=== PATIENT | female | born 2000 | race Hispanic/Latino ===

== ENCOUNTER → 2020-06-15 | Outpatient (CLI) | payer OTHER, SELFPAY ==
[~2020-06-15] MED LIST: ACETAMINOPHEN 325 MG TAB ONE; FERR325T81 PO; FLUCONAZOLE 50MG TABLET ONE; LIDOCAINE 1% MDV 20ML VIAL ONE; MAPA500T2 PO; MULTTAB20 PO; NITR100C2 PO; cefTRIAXone SOD 1GM VIAL (J0696 PER 250MG) ONE
[2020-07-19 21:36] LABS: APPEARANCE, URINE CLOUDY (CLEAR); BACTERIA, URINE AUTO 2+ (NEGATIVE); BILIRUBIN, URINE AUTO NEGATIVE (NEGATIVE); BLOOD, URINE BLOOD NEGATIVE (NEGATIVE); COLOR, URINE YELLOW (YELLOW); GLUCOSE, URINE (UA) AUTO NEGATIVE (NEGATIVE); KETONE, URINE AUTO TRACE mg/dL (NEGATIVE); LEUKOCYTE ESTERASE, URINE AUTO 3+ (NEGATIVE); MUCUS, URINE SMALL (NEGATIVE); NITRITE, URINE AUTO POSITIVE (NEGATIVE); PROTEIN, URINE AUTO NEGATIVE (NEGATIVE); RBC, URINE AUTO 8 /HPF (0-3); SPECIFIC GRAVITY URINE AUTO 1.006 (1.002-1.035); SQUAMOUS EPITHELIAL CELL UR AU 0 /HPF (0-6); WBC, URINE AUTO TNTC /HPF (0-3)
[2020-07-29 12:28] LABS: CHLAMYDIA DNA AMPLIFICATION NEGATIVE (NEGATIVE); GC DNA AMPLIFICATION NEGATIVE (NEGATIVE)
== END ==
LOC: M LDO 19:51
PROVIDERS: ATTEND Obstetrics & Gynecology
DX: O23.42 Unspecified infection of urinary tract in pregnancy, second trimester (principal); B37.3 Candidiasis of vulva and vagina; Z3A.26 26 weeks gestation of pregnancy
CPT/HCPCS: 76811; 76817; 76820; 81001; 87186; 87210; 87491; 87591; 96372; G0378; G0463; J0696

== ENCOUNTER 2020-06-29 15:33 | Emergency (ER) | payer OTHER, SELFPAY ==
--- NOTE | 2020-08-19 10:31 | HPE ---
DATE OF ADMISSION: 06/29/2020 A 20-year-old 2, para 1, estimated date of confinement (EDC) 09/21/2020 by an ultrasound done in [place]. Last period 12/14/2019, giving her an EDC of 09/07/2020, but the EDC by ultrasound is more accurate, 09/21/2020. Patient is 28 weeks today. On 06/16/2020, patient was in the emergency. Had a urinary tract infection (UTI). Was given Bactrim. Did not take more than two pills, because she got nauseated and vomited and continued to have nausea and vomiting for the last 4 days with some back pain. PAST HISTORY: In 2017, male, premature rupture of membranes (PPROM) at 35 weeks, 1800 grams. Spent 10 days in the intensive care unit (NICU). RISK FACTORS: She has had no care. She is COVID negative. Isolated 14 days. She had a delivery at 35 weeks. She has significant anemia and urinary tract infection untreated. LABORATORY DATA: Per [place], her EDC is 09/21/2020 and her Pap smear is normal. On examination, no distress. Very pale and anemic. Category 1 strip. No contractions. No discharge. No decelerations. Moderate variability. Blood pressure is 105/59, respirations are 18, pulse 83, temperature is 98.4. Hemoglobin is 9.9, hemoglobin 29.2, and platelets are 164. Urine is cloudy, 1010, pH of 7, plus leukocyte esterase, plus protein, plus blood, plus nitrates. WBC too numerous to count, and bacteria plus. Plan of management is to do Unasyn 3 grams IV push, rehydrate the patient. I gave her a phone number of appointment for [facility] for initial evaluation at 29 weeks. I gave her discharge instructions and was discharged undelivered. In summary, we have a 28-week patient who has had no care, recently moved from [place]. Is quarantined for the last 14 days. Patient expressed understanding through her conference interpreter. She is Persian speaking only. MEDISYS HEALTH NETWORKSharlene
== END 2020-06-29 16:33 | disposition admitted as inpatient to this hospital (09) ==
LOC: M ED 15:33
DX: O21.9 Vomiting of pregnancy, unspecified (principal); Z3A.28 28 weeks gestation of pregnancy; Z53.21 Procedure and treatment not carried out due to patient leaving prior to being seen by health care provider

== ENCOUNTER → 2020-06-29 | Outpatient (CLI) | payer OTHER, SELFPAY ==
[~2020-06-29] MED LIST changes: -ACETAMINOPHEN 325 MG TAB ONE; -FLUCONAZOLE 50MG TABLET ONE; -LIDOCAINE 1% MDV 20ML VIAL ONE; -cefTRIAXone SOD 1GM VIAL (J0696 PER 250MG) ONE
[2020-09-07 13:20] LABS: HEMATOCRIT 29.2 % (36.0-47.0); HEMOGLOBIN 9.9 g/dl (12.0-15.5); MEAN CORPUSCULAR HEMOGLOBIN 30.1 pg (27.0-33.0); MEAN CORPUSCULAR HGB CONC 33.9 g/dl (32.0-36.5); MEAN CORPUSCULAR VOLUME 88.8 fl (80.0-96.0); PLATELET COUNT, AUTOMATED 164 10^3/uL (150-450); RED BLOOD COUNT 3.29 10^6/uL (4.00-5.40); WHITE BLOOD COUNT 10.9 10^3/uL (4.0-10.0)
[2020-09-08 15:26] LABS: APPEARANCE, URINE MANUAL CLOUDY (CLEAR)
[2020-09-08 15:27] LABS: BILIRUBIN, URINE MANUAL NEGATIVE (NEGATIVE); COLOR, URINE MANUAL YELLOW (YELLOW); GLUCOSE, URINE (UA) MANUAL NEGATIVE (NEGATIVE); KETONE, URINE MANUAL NEGATIVE (NEGATIVE); LEUKOCYTE ESTERASE, URINE MAN POSITIVE (NEGATIVE); NITRITE, URINE MANUAL POSITIVE (NEGATIVE); PROTEIN, URINE MANUAL POSITIVE (NEGATIVE); UROBILINOGEN, URINE MANUAL NORMAL (NORMAL)
[2020-09-08 15:28] LABS: BLOOD URINE MANUAL POSITIVE (NEGATIVE); RENAL EPITHELIAL CELLS, URINE SMALL AMOUNT /hpf; SQUAMOUS EPITHELIAL CELL URINE SMALL AMOUNT /hpf (SMALL AMT); WBC, URINE TNTC /hpf (0-3)
[2020-09-08 15:29] LABS: BACTERIA, URINE LARGE AMOUNT; MUCUS, URINE SMALL AMOUNT (NEGATIVE)
== END ==
LOC: M LDO 17:00
PROVIDERS: ATTEND Obstetrics & Gynecology
DX: O23.43 Unspecified infection of urinary tract in pregnancy, third trimester (principal); Z3A.28 28 weeks gestation of pregnancy

== ENCOUNTER 2020-08-05 14:45 | Outpatient (CLI) | payer OTHER ==
[~2020-08-05] VITALS: Ht 167.6 cm; Wt 65.5 kg
[2020-08-05 15:08] VITALS: BP 108/60
--- NOTE | 2020-08-05 16:21 | IPNPDOC ---
Text Note Date of Service The patient was seen on 08/05/20. NOTE [facility] LND Triage S: Elvira is a 20yo at 33+2wks, EDC [id number], who presents to LND triage with c/o PROM x2 days. Pt reports that she has been leaking clear fluid x2 days and is now soaking through her underwear. She reports +FM and BH CTX when fetus is moving, denies LOF/VB. She reports intercourse this AM. Pt has history of PPROM with first delivery at 35 weeks and is concerned that this is the same feeling she had then. otherwise uncomplicated. O: VSS, afebrile, normotensive FHR 140s, moderate variability, + accels, no decels CTX by TOCO: few present and 10 minutes apart (or greater), soft abdomen; pt denies feeling these SSE: copius watery discharge present, sample obtained for WP/TAY and fern screen Fern negative TAY/WP pending TAUS: VTX, MONI WNL - SDP 4.43cm A: 20yo at 33+2wks, intact membranes; Reactive NST. WP/TAY pending. P: Pt discharged home with strict PTL precautions If WP/TAY positive, I will call patient and treat based on results Pt to f/u PRN and for scheduled appointment at 36 weeks in clinic MANASA PENNINGTON CNM Aug 05, 2020 16:21
== END 2020-08-05 16:15 | disposition home or self-care (01) ==
LOC: M LDO 14:45
PROVIDERS: ATTEND Registered Nurse Maternal Newborn
DX: O26.893 Other specified pregnancy related conditions, third trimester (principal); Z87.51 Personal history of pre-term labor; Z3A.33 33 weeks gestation of pregnancy
CPT/HCPCS: 59025; 76815; 87210; G0378; G0463

== ENCOUNTER 2020-08-13 09:10 | Emergency (ER) | payer OTHER ==
[~2020-08-13] VITALS: Ht 167.6 cm; Wt 66.5 kg
[2020-08-13] MEDS ORDERED: FERR325T81 PO (09:19)
[2020-08-13] MEDS ORDERED: MULTTAB20 PO (09:19)
[2020-08-13 12:30] VITALS: BP 105/64
--- NOTE | 2020-08-13 20:31 | ECGEPIP ---
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
[2020-08-14] MEDS ORDERED: MAPA500T2 PO (12:44)
== END 2020-08-13 13:00 | disposition home or self-care (01) ==
LOC: M ED 09:10
DX: O26.893 Other specified pregnancy related conditions, third trimester (principal); Z3A.34 34 weeks gestation of pregnancy; Z79.899 Other long term (current) drug therapy

== ENCOUNTER 2020-08-14 12:04 | Inpatient (IN) | payer OTHER ==
[2020-08-14] VITALS (8 sets, daily range): BP systolic 95–118; BP diastolic 50–72
[~2020-08-14] VITALS: Ht 167.6 cm; Wt 66.5 kg
[~2020-08-14 12:04] MED LIST changes: -MAPA500T2 PO; -NITR100C2 PO
[2020-08-14] MEDS ORDERED: MAPA500T2 PO (12:44)
[2020-08-14] MEDS ORDERED: LR 1,000 ML IV ONE (13:00)
[2020-08-14 14:09] LABS: HEMATOCRIT 32.7 % (36.0-47.0); MEAN CORPUSCULAR HEMOGLOBIN 29.7 pg (27.0-33.0); MEAN CORPUSCULAR HGB CONC 33.6 g/dl (32.0-36.5); MEAN CORPUSCULAR VOLUME 88.4 fl (80.0-96.0); PLATELET COUNT, AUTOMATED 139 10^3/uL (150-450); WHITE BLOOD COUNT 8.8 10^3/uL (4.0-10.0)
[2020-08-14] MEDS ORDERED: BETAMETHASONE SOLUSPAN 6MG/ML 5ML VIAL (J0702 PER 3MG) IM ONE (14:15)
[2020-08-14] MEDS ORDERED: ACETAMINOPHEN TAB 650MG DOSE (2X325MG) PO PRN (14:45)
[2020-08-14] MEDS ORDERED: diphenhydrAMINE 25MG CAP PO PRN (14:45)
[2020-08-14 14:55] LABS: APPEARANCE, URINE CLEAR (CLEAR); BACTERIA, URINE AUTO 1+ (NEGATIVE); BILIRUBIN, URINE AUTO NEGATIVE (NEGATIVE); BLOOD, URINE BLOOD 1+ (NEGATIVE); COLOR, URINE YELLOW (YELLOW); GLUCOSE, URINE (UA) AUTO NEGATIVE (NEGATIVE); KETONE, URINE AUTO NEGATIVE (NEGATIVE); LEUKOCYTE ESTERASE, URINE AUTO 1+ (NEGATIVE); MUCUS, URINE SMALL (NEGATIVE); NITRITE, URINE AUTO POSITIVE (NEGATIVE); PROTEIN, URINE AUTO NEGATIVE (NEGATIVE); RBC, URINE AUTO 1 /HPF (0-3); SPECIFIC GRAVITY URINE AUTO 1.008 (1.002-1.035); SQUAMOUS EPITHELIAL CELL UR AU 1 /HPF (0-6); UROBILINOGEN, URINE AUTO 0.2 mg/dL (0.0-2.0); WBC, URINE AUTO 11 /HPF (0-3)
--- NOTE | 2020-08-14 14:58 | IPNPDOC ---
Obstetrical Progress Note Date of Service Aug 14, 2020 Subjective Presenting to triage with c/o fainting and feeling faint several times over the last day, seen in ED one day prior. Denies falling. C/o intermittent back pain with abdominal tightening and continued thin vaginal discharge. Objective Vital Signs Date Time Temp Pulse Resp B/P (MAP) Pulse Ox O2 Delivery O2 Flow Rate FiO2 08/14/20 12:30 98.0 75 20 100/59 (73) 97 Room Air Assessment Heart Rate (FHR): 140 Variability: Moderate Accelerations: Positive Decelerations: None Heart Rate Tracing: Category I Tocometer Contractions: Yes (5-7 minutes) Sterile Vaginal Examination Dilation: 5 cm Effacement (%): 50% Station: -1 Cervical Consistency: Soft Cervical Position: Posterior Postion/Presentation: Cephalic presentation Assessment and Plan Age: 20 : 2 Term: 0 Pre-term: 1 Abortions: 0 Livin EGA at Admission: 34 (+1) Status: Reassuring Group B Streptococcus: Unknown Anticipate: Vaginal Delivery Additional Comments Speculum exam with pooling thin white vaginal discharge, -valsalva, -fern, -TAY, -WP. GBS collected and sent. AUGUSTO CERVANTES CNM Aug 14, 2020 14:58
[2020-08-14] MEDS ORDERED: PENICILLIN G POTASSIUM IV 5 MU in D5W MINI-BAG PLUS 100 ML IV ONE (15:00)
[2020-08-14] MEDS: LR 1,000 ML IV SCH ×2 (15:42→22:33)
--- NOTE | 2020-08-14 16:13 | HPEPDOC ---
Obstetrical History & Physical General Date of Admission Aug 14, 2020 at 15:09 History of Present Illness 20yo at 34+4 with a hx of prior at 35wks, presents to Labor and delivery for follow up after being seen in the ED for dizziness and fainting on [id number]. C/o continued feelings of dizziness and feeling faint with intermittent back pain. 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 Weight of (grams): 1800 [place] MASSEUSE History: No pertinent history Past Medical History Surgical History: Denies/None Family History Significant Family History: No pertinent family hx Social History Social history speaks Burundian only, states middle school education level Marital Status: Family situation: Spouse/partner home Psychosocial History: No pertinent psych hx * Smoker: non-smoker Alcohol: Denies Imunizations Tdap status: needs Influenza Status: needs Allergies Coded Allergies: No Known Allergies (Unverified , 08/05/20) Medications Scheduled Ferrous Sulfate (Iron) 325 Mg Tablet, 1 TAB PO BID No122/Iron/Folic Acid ( Multi Tablet) 1 Each Tablet, 1 TAB PO DAILY Scheduled PRN Acetaminophen (Mapap) 500 Mg Tablet, 650 MG PO Q4HP PRN for DISCOMFORT Physical Examination Physical Examination GENERAL: Alert and oriented times three. BREAST: . ABDOMEN: Gravid and non-tender to touch. FETUS: Is vertex (VTX) by sterile vaginal examination (SVE), fetus is vertex (VTX) by Harshad. HEART RATE: Regular rate and rhythm. LUNGS: Clear to auscultation (CTA). EXTREMITIES: No edema. No clonus. Deep tendon reflexes (DTRs) + . Vital Signs/I&O Vital Signs Date Time Temp Pulse Resp B/P (MAP) Pulse Ox O2 Delivery O2 Flow Rate FiO2 08/14/20 12:30 98.0 75 20 100/59 (73) 97 Room Air Laboratory Data 24H LABS Laboratory Tests 2 08/14/20 13:38: Nucleated Red Blood Cells % (auto) 0.0, Syphilis Serology NONREACTIVE 08/14/20 13:39: 08/14/20 14:42: Urine Color YELLOW, Urine Appearance CLEAR, Urine pH 7.0, Urine Specific [place] 1.008, Urine Protein NEGATIVE, Urine Glucose (Auto)(UA) NEGATIVE, Urine Ketones (Auto) NEGATIVE, Urine Blood 1+H, Urine Nitrite POSITIVE, Urine Bilirubin NEGATIVE, Urine Urobilinogen 0.2, Urine Leukocyte Esterase (Auto) 1+H, Urine WBC (Auto) 11H, Urine RBC (Auto) 1, Urine Hyaline Casts (Auto) 0, Urine Bacteria (Auto) 1+H, Urine Squamous Epithelial Cells 1, Urine Mucus (Auto) SMALL, Urine Sperm (Auto) 08/14/20 15:13: Serology Scanned Report Hepatitis B Testing CBC/BMP Laboratory Tests 08/14/20 13:38 Microbiology Microbiology 08/14/20 Group B Streptococcus Screen (BIBIANA), Received Pending Pertinent Laboratoy Data Blood Type: O+ RBC Antibody Screen: Negative HIV: Negative Hepatitis B: Negative Rapid Plasma Reagin: Nonreactive Rubella: Immune Chlamydia/Gonorrhea: Negative Group B Streptococcus: Negative Glucose Tolerance Test: 129 Anatomy Ultrasound Placenta Location: Posterior Normal Anatomy: Yes Placenta Previa: No Steroid Therapy Steroid Therapy: Yes Date #1: Aug 14, 2020 Vaginal Examination Dilation: 5 cm Effacement: 50% Station: -1 Cervical Consistency: Soft Cervical Position: Posterior Presentation: Cephalic presentation Position: Vertex (occiput) Assessment Heart Rate (FHR): 140 Variability: Moderate Accelerations: Positive Decelerations: None Tocometer Contractions: Yes (3-5 min) Strength: palpated as moderate Assessment/Plan Assessment [Elvira] is a [20]-year-old (G)[2] para (P)[0]-[1]-[0]-[1] at [34]+[4] weeks by [25]-week ultrasound. Presents to Labor and Delivery (L&D) [with c/o feeling faint, vicki regularly]. Plan Admit and orient. Director Equipment and consent. Diet: [clear liquids]. Group B Streptococcus (GBS) [unknown] treat per procol. Labs and intravenous (IV) per unit protocol. Counseled on betamethasone x2 q 24hours and GBS prophylaxis for unknown status. Lactated Ringers (LR): Bolus [1000] mL, then at [125] mL/hr. Continuous efm x2, monitor for change in status, consult with OB physician and NICU as indicated, evaluate for change as appropriate. Labor and Delivery Counseling Patient counseled on need for admission and monitoring. Consent verified. AUGUSTO CERVANTES CNM Aug 14, 2020 16:13
[2020-08-14 16:15] LABS: CHLAMYDIA DNA AMPLIFICATION NEGATIVE (NEGATIVE); GC DNA AMPLIFICATION NEGATIVE (NEGATIVE)
--- NOTE | 2020-08-14 19:34 | IPNPDOC ---
Obstetrical Progress Note Date of Service Aug 14, 2020 Subjective To room for acceptance of care. Patient reports that her pain is the same as earlier in the day. She reports no significant increase in pressure or pain. She denied VB, LOF, or decreased FM. Objective Vital Signs Date Time Temp Pulse Resp B/P (MAP) Pulse Ox O2 Delivery O2 Flow Rate FiO2 08/14/20 18:22 97.8 80 16 118/62 (80) 97 Room Air Assessment Heart Rate (FHR): 145 Variability: Moderate Accelerations: Positive Decelerations: None Heart Rate Tracing: Category I Tocometer Contractions: Yes Frequency: regular Sterile Vaginal Examination Dilation: 5 cm Effacement (%): 50% Station: +1 Cervical Consistency: Soft Cervical Position: Posterior Postion/Presentation: Cephalic presentation (by exam) Assessment and Plan Status: Reassuring Additional Comments CAT I tracing, reactive. VS normal. Patient still with regular contractions that patient palpates but reports they are not painful just noticeable. She reports these contractions started 3 days ago and have not changed in character over this time. SVE repeated to see if there has been cervical change and exam was the same. At this time will continue GBS PPX for GBS unknown pre-term as well as continue steroid course given advanced cervical dilation. UA returned with positive blood and nitrites concerning for a UTI will start on macrobid for suspected UTI. CBC revealed gestational thrombocytopenia, recommend repeat CBC if prolonged interval between delivery. G/C negative. TAY/WP negative per repo rt. Ferning/nitrazine negative per report. Will repeat SVE if increased pressure or pain. The patient initially presented for near syncopal episodes. She had a single episode then went to the ER where I reviewed reports from EKG and orthostatic BP testing that were normal. She has a CBC with mild anemia, patient is on Fe. She has had normal VS since admission and in the ED. She then returned home and had two more near syncopal episodes. Given negative preliminary work up, now that it has been confirmed that patient is not imminently delivering will consult IM for further syncope evaluation. JUAN TRINH DO Aug 14, 2020 19:34
[2020-08-14] MEDS: PENICILLIN G POTASSIUM IV 2.5 MU in IV 1 EA IV SCH ×2 (20:16→23:31)
[2020-08-14] MEDS: NITROFURANTOIN (MACROBID) 100 MG CAP PO SCH (20:58)
--- NOTE | 2020-08-14 22:14 | CR.PDOC ---
General Date of Consultation: Aug 14, 2020 Referring Provider: JUAN TRINH DO Attending Physician: KOBE PLASCENCIA MD Consultation REASON FOR CONSULTATION/CHIEF COMPLAINT: Syncope HISTORY OF PRESENT ILLNESS: Elvira Gaytan is a 20 YO F currently at 34 weeks of who first presented to urgent care, later sent to the ED for fainting episode. She is Pashto-speaking only but interview is accomplished with the help of interpretation services and her . The patient reports that she was making breakfast for her and her , had finished cooking, and started to feel as though her legs were going to give out. She then describes a feeling of ringing in her ears and tingling of her hands and feet. She walked to her dining room where she called out to her for help because she was afraid she would fall. He noticed her appearing more pale and had her sit down. Her symptoms persisted for about 30 minutes. She denies any loss of bowel or bladder function. Her denies any shaking movements other than nervous tremor of her hands. She was not confused or disoriented during this event and only describes feeling weakness of her legs and thus instability, but no lightheadedness of feeling as though the room is spinning. She also reports feeling like she "couldn't catch [her] breath" but denies palpitations or sensation of skipped heartbeats. Otherwise, the patient notes she has had an uneventful other than a diagnosis of recent UTI for whi ch she is on Macrobid. She has had morning nausea/vomiting throughout the but she has been eating/drinking well and gaining weight appropriately. To her knowledge her care has been without abnormality. ALLERGIES: Please see below. HOME MEDICATIONS: Please see below. PAST MEDICAL HISTORY: No significant past medical history PAST SURGICAL HISTORY: No prior surgeries FAMILY HISTORY: Maternal grandmother with Congestive Heart failure SOCIAL HISTORY: Pashto-speaking only. Lives with who is in the [employer]. Smoked 5-6 cigarettes/day prior to Occasional alcohol prior to Denies any previous illicit drug use, including IVDU and marijuana REVIEW OF SYSTEMS: Constitutional: No Weight Change, No Fever, No Chills, No Night Sweats, No Fatigue, No Malaise ENT/Mouth: No Hearing Changes, No Ear Pain, No Nasal Congestion, No Sinus Pain, No Hoarseness, No sore throat, No Rhinorrhea, No Swallowing Difficulty Eyes: No Eye Pain, No Swelling, No Redness, No Foreign Body, No Discharge, No Vision Changes Cardiovascular: No Chest Pain, No SOB, No PND, No Dyspnea on Exertion, No Orthopnea, No Claudication, No Edema, No Palpitations Respiratory: No Cough, No Wheezing, No Smoke Exposure, Some dyspnea on exertion Gastrointestinal: No Nausea, No Vomiting, No Diarrhea, No Constipation, No Pain, No Heartburn, No Anorexia, No Dysphagia, No Hematochezia, No Melena, No Jaundice Genitourinary: No Dysmenorrhea, No DUB, No Dyspareunia, No Dysuria Musculoskeletal: No Arthralgias, No Myalgias, No Joint Swelling, No Joint Stiffness, No Back Pain, No Neck Pain, No Injury History Skin: No Skin Lesions, No Pruritis, No Hair Changes, No Breast/Skin Changes, No Nipple Discharge Neuro: No Weakness, No Numbness, No Paresthesias, No Loss of Consciousness, No Syncope, No Dizziness, No Headache, No Coordination Changes, No Recent Falls Psych: No Anxiety/Panic, No Depression, No Insomnia, No Personality Changes, No Delusions Heme/Lymph: No Bruising, No Bleeding, No Transfusions History, No Lymphadenopathy Endocrine: No Polyuria, No Polydipsia, No Temperature Intolerance VITAL SIGNS: see below GENERAL: alert and oriented, in no apparent distress, pleasant and conversant in full sentences. HEENT: PERRL, EOMI, Oral mucous membranes are moist without lesions. NECK: The patient has no noted JVD. No adenopathy is appreciated. No thyromegaly CHEST/LUNGS: Lungs are clear bilaterally without rhonchi, rales, or wheezes. There is no subcutaneous air appreciated. There is no tenderness to the chest wall. HEART:Regular rate and rhythm. There is a 2/6 MISTY heard best in LUSB and radiates to the apex. Distal pulses are 2+. No carotid bruits appreciated. ABDOMEN: protuberant, Soft, nontender, and nondistended. Bowel sounds are positive. No organomegaly is appreciated. No masses are appreciated. There are no peritoneal signs. There is no Henrietta sign. EXTREMITIES: No peripheral edema. There is no focal long bone tenderness or deformity. SKIN: The patients skin is warm and dry, without rashes or lesions. PSYCHIATRIC: AAO x 3, normal mood/affect NEUROLOGIC: The patient has 5/5 strength to the upper and lower extremities bilaterally. Sensation is intact throughout. Deep tendon reflexes are 2+ in all four extremities. There are no deficits to the cranial nerves. LABORATORY DATA: Please see below. ASSESSMENT/PLAN: This is a 20 YO F 34 weeks who presents after 2 episodes of syncope found to be in labor. 1. Syncope: ddx includes arrhythmia/conduction disorder vs vasovagal vs less likely structural/valvular heart disease -It is reasonable to consider this a normal occurrence in given physiologic changes including decreased systemic vascular resistance resulting from vasodilation during . -EKG in ED demonstrates NSR with some poor R wave progression and nonspecific T wave abnormality unlikely contributory to etiology of syncope -Will order orthostatic vital signs Q4H -Continuous telemetry to monitor for arrhythmias -Transthoracic echo ordered as murmur was heard on exam. Patient is unsure whether she has had this murmur before. R/o valvular insufficiency -BNP ordered -CBC reviewed, H/H stable from prior. Will order iron labs to r/o iron deficiency -Congolese Syncope Risk Score for determination of 30 day risk of serious adverse events = -3 points (indicating very low risk, 0.4% risk in 30-day time period) Will review results of previously mentioned workup to determine whether Cardiology consult is indicated at this time. Vital Signs/I&O Vital Signs Date Time Temp Pulse Resp B/P (MAP) Pulse Ox O2 Delivery O2 Flow Rate FiO2 08/14/20 19:12 97.9 86 16 116/72 (87) 08/14/20 18:22 97 Room Air Laboratory Data Labs 24H Laboratory Tests 2 08/14/20 13:38: Nucleated Red Blood Cells % (auto) 0.0, Syphilis Serology NONREACTIVE 08/14/20 13:39: Chlamydia trachomatis DNA ([place]) NEGATIVE, Neisseria gonorrhoeae DNA ([place]) NEGATIVE 08/14/20 14:42: Urine Color YELLOW, Urine Appearance CLEAR, Urine pH 7.0, Urine Specific [place] 1.008, Urine Protein NEGATIVE, Urine Glucose (Auto)(UA) NEGATIVE, Urine Ketones (Auto) NEGATIVE, Urine Blood 1+H, Urine Nitrite POSITIVE, Urine Bilirubin NEGATIVE, Urine Urobilinogen 0.2, Urine Leukocyte Esterase (Auto) 1+H, Urine WBC (Auto) 11H, Urine RBC (Auto) 1, Urine Hyaline Casts (Auto) 0, Urine Bacteria (A uto) 1+H, Urine Squamous Epithelial Cells 1, Urine Mucus (Auto) SMALL, Urine Sperm (Auto) 08/14/20 15:13: Serology Scanned Report Hepatitis B Testing CBC/BMP Laboratory Tests 08/14/20 13:38 Microbiology Microbiology 08/14/20 Urine Culture, Received Pending 08/14/20 Group B Streptococcus Screen (BIBIANA), Received Pending Allergies Coded Allergies: No Known Allergies (Unverified , 08/05/20) Home Medications Scheduled Ferrous Sulfate (Iron) 325 Mg Tablet, 1 TAB PO BID for 30 Days, #60 (Reported) No122/Iron/Folic Acid ( Multi Tablet) 1 Each Tablet, 1 TAB PO DAILY for 30 Days, #30 (Reported) Scheduled PRN Acetaminophen (Mapap) 500 Mg Tablet, 650 MG PO Q4HP PRN for DISCOMFORT, (Reported) GME ATTESTATION GME ATTESTATION My faculty preceptor for this patient encounter was physically present during the encounter and was fully available. All aspects of the patient interview, examination, medical decision making process, and medical care plan development were reviewed and approved by the faculty preceptor. The faculty preceptor is aware and concurs with the plan as stated in the body of this note and will attest to such by his/her cosignature. ATTENDING NOTE TIME OF SERVICE 952PM Ms. Ever Gaytan is a 20 yr old G2 at 34 weeks gestation who presented for evaluation of syncope associated w dyspnea and shaking. She has also been having n w/o emesis or diarrhea and has been eating well. OB consulted us to determine if she needs additional testing to determine the cause of her syncope; her work-up so far including, EKG, and orthostats are unremarkable. Congolese Syncope Risk Score = -2 points = Very low risk of 30 day serious adverse event Plan: pls f/u telemetry, repeat EKG & electrolytes rest per 's H&P SAMANTHA DREW MD Aug 14, 2020 21:47 KOBE PLASCENCIA MD Aug 14, 2020 22:21
--- NOTE | 2020-08-14 22:16 | IPNPDOC ---
Obstetrical Progress Note Date of Service Aug 14, 2020 Subjective Strip note and chart review. Objective Vital Signs Date Time Temp Pulse Resp B/P (MAP) Pulse Ox O2 Delivery O2 Flow Rate FiO2 08/14/20 19:12 97.9 86 16 116/72 (87) 08/14/20 18:22 97 Room Air Assessment Heart Rate (FHR): 120 Variability: Moderate Accelerations: Positive Decelerations: None Heart Rate Tracing: Category I Tocometer Contractions: Yes Frequency: irregular Assessment and Plan Status: Reassuring Additional Comments VS normal. CAT I tracing, reactive. Contractions have significantly spaced out. No report of increased pain/pressure per nursing team. Internal medicine consult noted a murmur on exam and has initiated continuos tele monitoring and plans for an ECHO for continuation of her syncope work up. Recommendations per IM copied below... Will await results from studies and further recommendations. Thank you to the IM team for your input. 1. Syncope: ddx includes arrhythmia/conduction disorder vs vasovagal vs less likely structural/valvular heart disease -EKG in ED demonstrates NSR with some poor R wave progression and nonspecific T wave abnormality unlikely contributory to etiology of syncope -Will order orthostatic vital signs Q4H -Continuous telemetry to monitor for arrhythmias -Transthoracic echo ordered as murmur was heard on exam. Patient is unsure whether she has had this murmur before. JUAN TRINH DO Aug 14, 2020 22:16
--- NOTE | 2020-08-14 22:17 | IPNPDOC ---
Text Note Date of Service The patient was seen on 08/14/20. NOTE TIME OF SERVICE 952PM Ms. Ever Gaytan is a 20 yr old G2 at 34 weeks gestation who presented for evaluation of syncope associated w dyspnea and shaking. She has also been having n w/o emesis or diarrhea and has been eating well. OB consulted us to determine if she needs additional testing to determine the cause of her syncope; her work- up so far including, EKG, and orthostats are unremarkable. [place]iken Syncope Risk Score = -2 points = Very low risk of 30 day serious ad verse event Plan: pls f/u telemetry, repeat EKG & electrolytes rest per 's H&P VS,Devendra, I+O VS, Devendra, I+O Laboratory Tests 08/14/20 13:38 Vital Signs Date Time Temp Pulse Resp B/P (MAP) Pulse Ox O2 Delivery O2 Flow Rate FiO2 08/14/20 19:12 97.9 86 16 116/72 (87) 08/14/20 18:22 97 Room Air KOBE PLASCENCIA MD Aug 14, 2020 22:17
[2020-08-14 23:01] LABS: BLOOD UREA NITROGEN 3 MG/DL (7-18); CALCIUM LEVEL 8.6 MG/DL (8.5-10.1); CARBON DIOXIDE LEVEL 23 MEQ/L (21-32); CHLORIDE LEVEL 108 MEQ/L (98-107); CREATININE FOR GFR 0.54 MG/DL (0.55-1.30); FERRITIN 18 NG/ML (8-252); GLOMERULAR FILTRATION RATE > 60.0 (>60); GLUCOSE, FASTING 109 MG/DL (70-100); IRON (FE) 130 UG/DL (50-170); NT-PRO BNP 38 PG/ML (<125); PERCENT SATURATION 30.8 % (13.2-45.0); SODIUM LEVEL 139 MEQ/L (136-145); TOTAL IRON BINDING CAPACITY 422 UG/DL (250-450)
[2020-08-15] VITALS (8 sets, daily range): BP systolic 84–107; BP diastolic 47–60
[2020-08-15] MEDS: PENICILLIN G POTASSIUM IV 2.5 MU in IV 1 EA IV SCH ×3 (03:22→11:55)
[2020-08-15] MEDS: NITROFURANTOIN (MACROBID) 100 MG CAP PO SCH (08:54)
[2020-08-15] MEDS ORDERED: PRENATAL VITAMINS CHEWABLE TABLET PO SCH (09:00)
[2020-08-15] MEDS: LR 1,000 ML IV SCH (10:20)
--- NOTE | 2020-08-15 10:46 | IPNPDOC ---
Date Seen The patient was seen on 08/15/20. Progress Note SUBJECTIVE: denies lightheadedness, dizziness, palpitations, sob, chest pain, pressure, tightness, n/v/abd pain, diarrhea. no changes in vision. Despite sbp 89-90 mmHg, she remains asymptomatic, without recurrent syncopal episode. Tele: sinus without arrhythmias. Echo pending report. OBJECTIVE: PHYSICAL EXAMINATION: VITALS: SEE BELOW GENERAL: no use of respiratory accessory muscles. no pallor or icterus. alert and oriented, in no apparent distress HEENT: PERRL, EOMI, Oral mucous membranes are moist without lesions. no jaundice NECK: No adenopathy is appreciated. No thyromegaly CHEST/LUNGS: Lungs are clear bilaterally without rhonchi, rales, or wheezes. no adventitious breath sounds HEART:Regular rate and rhythm. Distal pulses are 2+. No carotid bruits appreciated. ABDOMEN: protuberant, Soft, nontender, and nondistended. Bowel sounds are positive. No organomegaly is appreciated. No masses are appreciated. There are no peritoneal signs. There is no [place] sign. EXTREMITIES: No peripheral edema. no cyanosis or clubbing SKIN: The patients skin is warm and dry, without rashes or lesions. PSYCHIATRIC: AAO x 3, normal mood/affect LABORATORY DATA, MEDS: PLS SEE BELOW ASSESSMENT AND PLAN: 20 YO F currently at 34 weeks of who first presented to urgent care, later sent to the ED for fainting episode. She is Kyrgyz-speaking only, with translating. 1. Syncope-awaiting Echo report. Encourage oral fluid intake. if negative for hemodynamically significant valvular disease, may discharge home. Pt is to keep a diary of blood rpessure and pulse during any recurrent episodes. may need a holter monitor if recurrent symptoms. 2. 34 weeks of -OB monitoring wellness. Disposition: may dc home if normal Echo. VS, I&O, 24H, Fishbone Vital Signs/I&O Vital Signs Date Time Temp Pulse Resp B/P (MAP) Pulse Ox O2 Delivery O2 Flow Rate FiO2 08/15/20 08:33 16 86/52 (63) Room Air 08/15/20 07:40 98.2 08/15/20 05:08 77 80 73 08/14/20 18:22 97 I&O- Last 24 Hours up to 6 AM 08/15/20 06:00 Intake Total 1900 ml Output Total 2250 ml Balance -350 ml Laboratory Data 24H LABS Laboratory Tests 2 08/14/20 13:38: Nucleated Red Blood Cells % (auto) 0.0, Syphilis Serology NONREACTIVE 08/14/20 13:39: Chlamydia trachomatis DNA ([place]) NEGATIVE, Neisseria gonorrhoeae DNA ([place]) NEGATIVE 08/14/20 14:42: Urine Color YELLOW, Urine Appearance CLEAR, Urine pH 7.0, Urine Specific [place] 1.008, Urine Protein NEGATIVE, Urine Glucose (Auto)(UA) NEGATIVE, Urine Ketones (Auto) NEGATIVE, Urine Blood 1+H, Urine Nitrite POSITIVE, Urine Bilirubin NEGATIVE, Urine Urobilinogen 0.2, Urine Leukocyte Esterase (Auto) 1+H, Urine WBC (Auto) 11H, Urine RBC (Auto) 1, Urine Hyaline Casts (Auto) 0, Urine Bacteria (Auto) 1+H, Urine Squamous Epithelial Cells 1, Urine Mucus (Auto) SMALL, Urine Sperm (Auto) 08/14/20 15:13: Serology Scanned Report Hepatitis B Testing 08/14/20 22:15: Anion Gap 8, Glomerular Filtration Rate > 60.0, Calcium Level 8.6, Iron Level 130, Total Iron Binding Capacity 422, Transferrin % Saturation 30.8, Ferritin 18, QS-Cfe-[id number]-Type Natriuretic Peptide 38 CBC/BMP Laboratory Tests 08/14/20 13:38 08/14/20 22:15 Microbiology Microbiology 08/14/20 Urine Culture, Received Pending 08/14/20 Group B Streptococcus Screen ([facility]), Received Pending FRANCISCO COOMBS MD Aug 15, 2020 10:43
--- NOTE | 2020-08-15 11:46 | IPNPDOC ---
Obstetrical Progress Note Date of Service Aug 15, 2020 Subjective states feeling comfortable, back pain has resolved, continues to feel lightheaded with changes n position from lying to sitting and sitting to standing Objective Vital Signs Date Time Temp Pulse Resp B/P (MAP) Pulse Ox O2 Delivery O2 Flow Rate FiO2 08/15/20 11:06 97 16 95/51 (66) Room Air 08/15/20 07:40 98.2 08/14/20 18:22 97 Assessment Heart Rate (FHR): 120 Variability: Moderate Accelerations: Positive Decelerations: None Heart Rate Tracing: Category I Tocometer Contractions: No (contractions appear to have resolved) Assessment and Plan Age: 20 : 2 Term: 0 Pre-term: 1 Abortions: 0 Livin Weeks & Days 34+5 Status: Reassuring Additional Comments continue efm x1, lr at 125, gbs prophylaxis, encourage oral hydration, give second betamethasone at 24 hours from first dose, evaluate for change as indicated AUGUSTO CERVANTES CNM Aug 15, 2020 11:46
[2020-08-15] MEDS ORDERED: BETAMETHASONE SOLUSPAN 6MG/ML 5ML VIAL (J0702 PER 3MG) IM SCH (14:00)
--- NOTE | 2020-08-15 14:55 | IPNPDOC ---
Obstetrical Progress Note Date of Service Aug 15, 2020 Subjective pt feeling well, denies contractions Objective Vital Signs Date Time Temp Pulse Resp B/P (MAP) Pulse Ox O2 Delivery O2 Flow Rate FiO2 08/15/20 13:15 98.0 86 16 98/54 (69) Room Air 08/14/20 18:22 97 Assessment Heart Rate (FHR): 120 Variability: Moderate Accelerations: Positive Decelerations: None Heart Rate Tracing: Category I Tocometer Contractions: No Sterile Vaginal Examination Dilation: 5 cm Effacement (%): 50% Station: -1 Cervical Consistency: Soft Cervical Position: Posterior Postion/Presentation: Cephalic presentation Assessment and Plan Status: Reassuring Additional Comments Cervical exam unchanged from previous exam. Betamethasone complete. Consulted with Dr. Weinberg for plan of care. Pt may be discharged to home with f/u in clinic in one week. Reviewed ptl precautions, hydration, treatment and prevention of vaginal and urinary tract infections and reasons to return for care with expressed understanding. AUGUSTO CERVANTES CNM Aug 15, 2020 14:55
[2020-08-15] MEDS ORDERED: NITR100C2 PO (15:02)
[2020-08-15] MEDS ORDERED: INFLUENZA QUADRIVALENT PF VACCINE 0.5ML SYRINGE IM ONE (15:30)
--- NOTE | 2020-08-18 07:29 | ECHO ---
DATE OF PROCEDURE: 08/15/2020 Age: 20 Gender: Female REFERRING PHYSICIAN: Brittany Vasquez MD REASON FOR STUDY: Syncope. 2D MEASUREMENTS: IVS 0.92 cm LV 4.8 cm LVPW 0.98 cm LA 3.9 cm Aorta 2.6 cm IVC 1.8 cm DOPPLER MEASUREMENT Peak velocity across the aortic valve 1.7 m/s Peak velocity across the LVOT 1.4 m/s Mitral E 1.2 Mitral A 1.1 with a ratio of 1.1 Maximum tricuspid valve velocity 1.9 m/s 2D COMMENTS: 1. Normal left ventricular size, wall thickness, and normal global left ventricular systolic function. The estimated left ventricular systolic ejection fraction is 60% to 65%. 2. Normal left atrium. Normal right atrium and right ventricle. 3. The atrial septum appeared to be normal without evidence of defect or shunt. 4. Normal aortic root. 5. No pericardial effusion seen. 6. The aortic valve, mitral valve, and tricuspid valve appear to be normal. The pulmonic valve and proximal pulmonary artery branches were not well visualized. 7. The inferior vena cava was not well visualized. Doppler with no significant valvular abnormalities detected, but trace tricuspid regurgitation. The calculated pulmonary artery systolic pressure was normal. Assessment of the left ventricular diastolic function was normal. IMPRESSION: 1. Normal global left ventricular systolic and diastolic function. 2. Trace tricuspid regurgitation. MTDD
== END 2020-08-15 16:00 | disposition home or self-care (01) | DRG 833 ==
LOC: M LDO 12:04 → M LDI 15:09
PROVIDERS: ADMIT Registered Nurse; ATTEND Registered Nurse
DX: O26.893 Other specified pregnancy related conditions, third trimester (principal); R55 Syncope and collapse; Z3A.34 34 weeks gestation of pregnancy; R42 Dizziness and giddiness; R01.1 Cardiac murmur, unspecified

== ENCOUNTER 2020-09-05 00:54 | Inpatient (IN) | payer OTHER ==
[~2020-09-05] VITALS: Ht 167.6 cm; Wt 68.1 kg
[~2020-09-05 00:54] MED LIST changes: +MAPA500T2 PO; +NITR100C2 PO
[2020-09-05] MEDS ORDERED: OXYTOCIN 30 UNITS IN 0.9% NaCl 500ML IV BAG (J2590) As Ordered ONE (00:57)
[2020-09-05 01:20] LABS: HEMATOCRIT 33.9 % (36.0-47.0); HEMOGLOBIN 11.3 g/dl (12.0-15.5); MEAN CORPUSCULAR HEMOGLOBIN 29.4 pg (27.0-33.0); MEAN CORPUSCULAR HGB CONC 33.3 g/dl (32.0-36.5); MEAN CORPUSCULAR VOLUME 88.3 fl (80.0-96.0); PLATELET COUNT, AUTOMATED 142 10^3/uL (150-450); RED BLOOD COUNT 3.84 10^6/uL (4.00-5.40)
[2020-09-05 01:35] VITALS: BP 127/71
[2020-09-05 01:56] VITALS: BP 133/78
--- NOTE | 2020-09-05 01:56 | HPEPDOC ---
Obstetrical History & Physical General Date of Admission Sep 05, 2020 at 00:54 History of Present Illness 20yo at 37+5wks presenting c/o painful ctx's and pelvic pressure, +VB. Denies LOF. Unsure of movement. Spouse translating in Turkish due to urgency of patient presentation and patient Turkish-speaking only. Chief Complaint: Contractions, term, Vaginal Bleeding, Active Labor Information Provided By: Family Care Care: Good Care Dating Final EDC: Sep 21, 2020 Final EDC for Daily Update: Sep 21, 2020 EGA at Admission: 37 (+5) Antepartum Course Diagnos(e)s Anemia complicating History of after PPROM at 35wks Gestational thrombocytopenia Advanced cervical dilation UTI complicating Height (inches): 66 Pre- weight (lbs.): 131 Admission Weight (lbs.): 150 Change in Weight (lbs.): 19 Past Medical History Past Obstetrical History : Past Obstetrical History: Multigravida Type of Delivery: Spontaneous Vaginal Del. 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: No pertinent history Past Medical History Medical History Anemia Surgical History: Denies/None Family History Significant Family History: No pertinent family hx Social History Marital Status: Family situation: Spouse/partner home Psychosocial History: No pertinent psych hx * Smoker: non-smoker Alcohol: Denies Drugs: denies Imunizations Tdap status: declined Influenza Status: declined Allergies Coded Allergies: No Known Allergies (Unverified , 08/05/20) Medications Scheduled Ferrous Sulfate (Iron) 325 Mg Tablet, 1 TAB PO BID Nitrofurantoin Monohyd/M-Cryst (Nitrofurantoin [place]-Mcr 100 mg) 100 Mg Capsule, 100 MG PO BID for urinary tract infection No122/Iron/Folic Acid ( Multi Tablet) 1 Each Tablet, 1 TAB PO DAILY Scheduled PRN Acetaminophen (Mapap) 500 Mg Tablet, 650 MG PO Q4HP PRN for DISCOMFORT Physical Examination Physical Examination GENERAL: Alert and oriented times three. ABDOMEN: Gravid and non-tender to touch. FETUS: Is vertex (VTX) by sterile vaginal examination (SVE), fetus is vertex (VTX) by Harshad. EXTREMITIES: No edema. : NEFG, bloody show noted. SVE c/c/+2 Laboratory Data 24H LABS Laboratory Tests 2 09/05/20 01:03: Nucleated Red Blood Cells % (auto) 0.0 09/05/20 01:06: Serology Scanned Report Hepatitis B Testing CBC/BMP Laboratory Tests 09/05/20 01:03 Urine Culture: Urinary Tract Infection Pertinent Laboratoy Data Blood Type: O+ RBC Antibody Screen: Negative HIV: Negative Hepatitis B: Negative Rapid Plasma Reagin: Immune Rubella: Immune Varicella: Unknown Chlamydia/Gonorrhea: Negative Group B Streptococcus: Negative Glucose Tolerance Test: 129 Anatomy Ultrasound Ultrasound Date: Jul 01, 2020 Placenta Location: Posterior Normal Anatomy: Yes Placenta Previa: No Estimated Weight (grams): 36 (percentile) Vaginal Examination Dilation: complete Effacement: 100% Station: +2 Cervical Consistency: Soft Cervical Position: Anterior Presentation: Cephalic presentation Assessment Heart Rate (FHR): 140 Variability: Moderate Accelerations: Positive Decelerations: None Tocometer Contractions: Yes Frequency: every 1-3 min. Multi-drug resistant Organism: No history of MDRO Assessment/Plan Assessment 20yo at 37+5wks presenting in active labor. H&P completed after delivery. Plan Admit and orient. [place] and consent. Diet: clears, regular after delivery Group B Streptococcus (GBS) negative. Labs and intravenous (IV) per unit protocol. Counseled on Pitocin and induction of labor (IOL). Lactated Ringers (LR): at 125 mL/hr. Anticipate normal spontaneous delivery (). C-S as appropriate. LEO LATIF DO Sep 05, 2020 01:56
--- NOTE | 2020-09-05 02:13 | DNPDOC ---
[facility] Delivery Note Delivery Note DATE OF DELIVERY: 09/05/2020 PREDELIVERY DIAGNOSIS: 1. 37+5/7 weeks' gestation 2. Active labor at term 3. Bleeding in 4. Gestational thrombocytopenia 5. Anemia complicating POST DELIVERY DIAGNOSIS: 1. 37+5/7 weeks' gestation 2. Active labor at term 3. Bleeding in 4. Gestational thrombocytopenia 5. Anemia complicating 6. Small for gestational age infant PROCEDURE: Spontaneous vaginal delivery. DIABETES EDUCATOR: Dr. Leo Latif ANESTHESIA: None ESTIMATED BLOOD LOSS: 150 mL. FINDINGS: 5 pound 6 ounce 2450g female infant, Score 7/8, no nuchal cord times, clear amniotic fluid DELIVERY SUMMARY: Elvira presented in active labor and was found to be c/c/+2 with membranes intact. Patient amenable to AROM which was performed notable for clear fluid. With excellent maternal effort over 4 sets of pushes, spontaneous vaginal delivery of a viable term female . Presentation was OA with restitution to ROT with left shoulder anterior position. Compound left hand noted. Anterior shoulder and body delivered without difficulty. No nuchal cord. No meconium. Infant with spontaneous cry placed on maternal abdomen with care transferred to [place] Team. Pitocin IV bolus initiated. Inspection revealed no lacerations. Third stage spontaneous with intact placenta. Fundal massage performed notable for firm uterine tone and hemostasis. EBL 150ml. Mother and infant stable and bonding upon my leaving the room. LEO LATIF DO Sep 05, 2020 02:12
[2020-09-05 02:15] VITALS: BP 142/87
[2020-09-05 05:51] VITALS: BP 112/60
[2020-09-05 17:57] VITALS: BP 113/72
[2020-09-06 06:00] VITALS: BP 102/53
[2020-09-07 06:00] VITALS: BP 113/56
--- NOTE | 2020-09-08 10:57 | IPN ---
DATE: 09/06/2020 This lady is a 1, now para 2, who was admitted at 37 plus 5 weeks of gestation in spontaneous labor. She had a spontaneous vaginal delivery, female infant, 5 pounds 6 ounces, 2450 grams, scores of 7 and 9 at one and five minutes, respectively. Blood pressure this morning 102/53, respirations 16, pulse 60, temperature 98.0. Initial hemoglobin 11.3, hematocrit 33.9, and platelets are 142. With the translator interpreter discussed phlebitis, cystitis, mastitis, endometritis, and cellulitis, diet, exercise, pain management, perineal and breast care. Her medications were dispensed at [facility]. She is to pick them up on her way home, which she will probably be discharged tomorrow. Make a 6-week checkup at [facility]. The rest of the examination is unremarkable. Normocephalic, atraumatic. Neck: Full range of motion. Pupils equal and reactive to light. Distal pulses are symmetric. No evidence of deep venous thrombosis (DVT), pulmonary embolus (PE), or superficial phlebitis. Chest is clear bilaterally to bases. No wheezes or rhonchi. No costovertebral angle (CVA) tenderness. Abdomen is soft. Four-quadrant bowel sounds are noted. Uterus 2 below. Lochia is moderate. She has no urgency or frequency. No nausea, vomiting, diarrhea, or constipation. Presently she is bottle feeding, doing well, and plans are for discharge tomorrows. We had a 20-minute discussion. All questions were answered through the translator interpreter. JP
== END 2020-09-07 13:20 | disposition home or self-care (01) | DRG 806 ==
LOC: M LDI 00:54 → M OBS 04:04
PROC: 10E0XZZ Delivery of Products of Conception, External Approach (ICD-10-PCS; principal; 2020-09-05)
PROC: 10907ZC Drainage of Amniotic Fluid, Therapeutic from Products of Conception, Via Natural or Artificial Opening (ICD-10-PCS; 2020-09-05)
DX: O99.02 Anemia complicating childbirth (principal); Z37.0 Single live birth; O99.12 Other diseases of the blood and blood-forming organs and certain disorders involving the immune mechanism complicating childbirth; D64.9 Anemia, unspecified; Z3A.37 37 weeks gestation of pregnancy; D69.6 Thrombocytopenia, unspecified; O32.6XX0 Maternal care for compound presentation, not applicable or unspecified

== ENCOUNTER 2021-10-21 11:34 | Emergency (ER) | payer OTHER ==
[~2021-10-21] VITALS: Ht 165.1 cm; Wt 62.3 kg
[2021-10-21] MEDS ORDERED: [UNRECOGNIZED DRUG - CODE] PO (11:57)
[2021-10-21 12:39] LABS: HEMATOCRIT 40.1 % (36.0-47.0); HEMOGLOBIN 13.1 g/dl (12.0-15.5); MEAN CORPUSCULAR HEMOGLOBIN 27.3 pg (27.0-33.0); MEAN CORPUSCULAR HGB CONC 32.7 g/dl (32.0-36.5); MEAN CORPUSCULAR VOLUME 83.7 fl (80.0-96.0); PLATELET COUNT, AUTOMATED 251 10^3/uL (150-450); RED BLOOD COUNT 4.79 10^6/uL (4.00-5.40); WHITE BLOOD COUNT 7.5 10^3/uL (4.0-10.0)
[2021-10-21 13:03] LABS: AMPHETAMINES LEVEL URINE NEGATIVE (NEGATIVE); BARBITURATES URINE NEGATIVE (NEGATIVE); BENZODIAZEPINES URINE NEGATIVE (NEGATIVE); CANNABINOIDS URINE NEGATIVE (NEGATIVE); COCAINE METABOLITE URINE NEGATIVE (NEGATIVE); METHADONE URINE NEGATIVE (NEGATIVE); OPIATES URINE NEGATIVE (NEGATIVE); PHENCYCLIDINE URINE NEGATIVE (NEGATIVE)
[2021-10-21 13:09] LABS: HCG, SERUM QUALITATIVE NEGATIVE (NEGATIVE)
[2021-10-21 13:19] LABS: ALBUMIN 4.4 GM/DL (3.2-5.2); ALT/SGPT 22 U/L (12-78); BILIRUBIN,DIRECT 0.4 MG/DL (0.0-0.2); BILIRUBIN,TOTAL 1.6 MG/DL (0.2-1.0); BLOOD UREA NITROGEN 13 MG/DL (7-18); CALCIUM LEVEL 9.5 MG/DL (8.5-10.1); CARBON DIOXIDE LEVEL 31 MEQ/L (21-32); CHLORIDE LEVEL 106 MEQ/L (98-107); CREATININE FOR GFR 0.72 MG/DL (0.55-1.30); GLOMERULAR FILTRATION RATE > 60.0 (>60); GLUCOSE, FASTING 96 MG/DL (70-100); POTASSIUM SERUM 3.7 MEQ/L (3.5-5.1); SODIUM LEVEL 141 MEQ/L (136-145); THYROID STIMULATING HORMONE 0.534 uIU/ML (0.358-3.740); TOTAL PROTEIN 8.7 GM/DL (6.4-8.2)
[2021-10-21 13:20] LABS: ACETAMINOPHEN LEVEL < 2.0 UG/ML (10.0-30.0); ETHYL ALCOHOL (ETHANOL) < 0.003 % (0.000-0.010); SALICYLATE LEVEL < 1.7 MG/DL (5.0-30.0)
[2021-10-21 13:37] LABS: RSV AMPLIFICATION NEGATIVE (NEGATIVE)
[2021-10-21] MEDS ORDERED: HOME MED LIST COMPLETE! XX SCH (13:50)
[2021-10-21] MEDS ORDERED: ACETAMINOPHEN TAB 650MG DOSE (2X325MG) PO ONE (14:35)
[2021-10-21] MEDS ORDERED: hydrOXYzine 25 MG TAB PO ONE (21:40)
[2021-10-23 06:00] VITALS: BP 130/58
== END 2021-10-23 06:20 ==
LOC: M ED 11:34
DX: R45.851 Suicidal ideations (principal); Z91.51 Personal history of suicidal behavior; F32.9 Major depressive disorder, single episode, unspecified; F41.9 Anxiety disorder, unspecified; F17.200 Nicotine dependence, unspecified, uncomplicated

== ENCOUNTER 2022-08-08 22:05 | Emergency (ER) | payer OTHER ==
[~2022-08-08] VITALS: Ht 167.6 cm; Wt 64.2 kg
[~2022-08-08 22:05] MED LIST changes: +[UNRECOGNIZED DRUG - CODE] PO
[2022-08-08 22:57] LABS: BASO % 0.5 % (0.0-1.0); EOS # 0.2 10^3/uL (0.0-0.5); EOS % 1.7 % (0.0-3.0); HEMATOCRIT 40.7 % (36.0-47.0); HEMOGLOBIN 13.1 g/dl (12.0-15.5); LYMPH # 3.6 10^3/uL (1.5-5.0); LYMPH % 40.5 % (24.0-44.0); MEAN CORPUSCULAR HGB CONC 32.2 g/dl (32.0-36.5); MEAN CORPUSCULAR VOLUME 83.9 fl (80.0-96.0); MONO # 0.6 10^3/uL (0.0-0.8); MONO % 6.7 % (2.0-8.0); NEUTROPHILS # 4.4 10^3/uL (1.5-8.5); NEUTROPHILS % 50.4 % (36.0-66.0); PLATELET COUNT, AUTOMATED 272 10^3/uL (150-450); RED BLOOD COUNT 4.85 10^6/uL (4.00-5.40); WHITE BLOOD COUNT 8.8 10^3/uL (4.0-10.0)
[2022-08-08 23:43] LABS: ALBUMIN 4.7 GM/DL (3.2-5.2); ALT/SGPT 29 U/L (12-78); BILIRUBIN,DIRECT 0.2 MG/DL (0.0-0.2); BILIRUBIN,TOTAL 0.4 MG/DL (0.2-1.0); BLOOD UREA NITROGEN 11 MG/DL (7-18); CALCIUM LEVEL 9.9 MG/DL (8.5-10.1); CARBON DIOXIDE LEVEL 28 MEQ/L (21-32); CHLORIDE LEVEL 106 MEQ/L (98-107); CREATININE FOR GFR 0.85 MG/DL (0.55-1.30); GLOMERULAR FILTRATION RATE > 60.0 (>60); GLUCOSE, FASTING 91 MG/DL (70-100); LIPASE 87 U/L (73-393); POTASSIUM SERUM 3.8 MEQ/L (3.5-5.1); SODIUM LEVEL 140 MEQ/L (136-145); TOTAL PROTEIN 8.8 GM/DL (6.4-8.2)
[2022-08-08] MEDS ORDERED: diphenhydrAMINE 50MG/ML VIAL (J1200) IV STA (23:56)
[2022-08-09] MEDS ORDERED: KETOROLAC 30 MG/ML 1ML VIAL IV ONE
[2022-08-09] MEDS ORDERED: METOCLOPRAMIDE INJ 10MG/2ML VIAL (J2765 PER 1) IV ONE
[2022-08-09] MEDS ORDERED: NS 1,000 ML IV ONE
[2022-08-09] MEDS ORDERED: REGL10TA6 PO (01:42)
[2022-08-09 02:15] VITALS: BP 128/82
== END 2022-08-09 02:19 | disposition home or self-care (01) ==
LOC: M ED 22:05
DX: R51.9 Headache, unspecified (principal); R42 Dizziness and giddiness; R11.2 Nausea with vomiting, unspecified; Z79.899 Other long term (current) drug therapy
CPT/HCPCS: 80048; 80076; 83690; 84702; 85025; 87428; 96361; 96374; 96375; 99284; J1200; J1885; J2765

== ENCOUNTER 2022-08-15 02:23 | Emergency (ER) | payer OTHER ==
[~2022-08-15] VITALS: Ht 165.1 cm; Wt 64.5 kg
[2022-08-15 02:23] VITALS: BP 116/64
[~2022-08-15 02:23] MED LIST changes: +REGL10TA6 PO
[2022-08-15] MEDS ORDERED: IBUP100S10 PO (02:42)
[2022-08-15] MEDS ORDERED: AMOX40SS PO (02:42)
[2022-08-15] MEDS ORDERED: COLDLIQ8 PO (02:42)
[2022-08-15] MEDS ORDERED: MAGICMW SSP (05:40)
== END 2022-08-15 06:00 | disposition home or self-care (01) ==
LOC: M ED 02:23
DX: R07.0 Pain in throat (principal); B34.9 Viral infection, unspecified; Z88.6 Allergy status to analgesic agent